=== PATIENT | male | born 1960 | race Caucasian/White ===

== ENCOUNTER 2016-11-17 01:53 | Inpatient (IN) ==
[2016-11-17] MEDS ORDERED: NS 1,000 ML IV ONE ×3 (02:38→04:27)
[2016-11-17] MEDS ORDERED: ZOFRAN IV ONE (02:39)
[2016-11-17 03:02] LABS: URINE CULTURE NEEDED? NO; URINE MICRO REVIEW NEEDED? NO; URINE SOURCE CLEAN CATCH
[2016-11-17 03:04] LABS: BILIRUBIN URINE NEGATIVE (NEGATIVE); BLOOD URINE NEGATIVE (NEGATIVE); COLOR STRAW; GLUCOSE URINE >1000 mg/dL (NEGATIVE); LEUKOCYTES URINE NEGATIVE (NEGATIVE); NITRITE URINE NEGATIVE (NEGATIVE); PROTEIN URINE NEGATIVE (NEGATIVE); SP GRAVITY URINE 1.022; TURBIDITY URINE CLEAR (CLEAR); UROBILINOGEN URINE NORMAL (NORMAL)
[2016-11-17 03:06] LABS: UR EPITHELIAL CELLS <10 /HPF (<10); URINE BACTERIA NEGATIVE /HPF; URINE RBC <10 /HPF (<10); URINE WBC <10 /HPF (<10)
[2016-11-17 03:19] LABS: ALLEN TEST YES; BE -18.7 mmoll (-3.0-3.0); BLOOD TYPE ARTERIAL; DRAW SITE R RADIAL; METHB 1.5 % (0.0-1.5); O2(CT) 19.4 mL/dL (15.0-23.0); PO2(98.6) 121 mmHg (60-100); SAMPLE BLOOD; SAO2 99.2 % (95.0-100.0); THB 14.2 g/dL (11.5-17.4); pH(98.6) 7.22 (7.35-7.45)
[2016-11-17 03:22] LABS: MODALITY ROOM AIR; PCO2(98.6) 16 mmHg (35-45)
[2016-11-17 03:59] LABS: ALBUMIN 4.2 g/dL (3.5-5.0); BASO% 0.1 % (0.0-0.8); CALCIUM 9.5 mg/dL (8.8-10.2); EOS# 0.01 X1000 (0.0-0.7); HEMOGLOBIN 13.8 g/dL (14.0-18.0); IMM GRAN% 0.7 % (0.0-0.5); LYMPH# 0.69 X1000 (1.2-3.4); LYMPH% 2.4 % (20.5-51.1); MANUAL DIFF NEEDED? NO; MCH 33.3 PG (27-31); MCHC 34.5 g/dL (33-37); MCV 96.6 FL (81-99); MONO# 2.09 X1000 (0.11-0.59); MONO% 7.3 % (1.7-9.3); MPV 9.3 FL (7.4-10.4); NEUT% 89.5 % (42.2-75.2); PLT 358 X1000 (130-400); POTASSIUM 5.9 mmol/L (3.5-5.1); RBC 4.14 XMIL (4.7-6.1); TOTAL BILIRUBIN 0.47 mg/dL (0.20-1.00); TOTAL PROTEIN 7.5 g/dL (6.3-8.3)
[2016-11-17] MEDS ORDERED: ZOSYN 3.375 GM/NS 3.375 GM/50 ML IVPB IV ONE (04:14)
[2016-11-17] MEDS ORDERED: HUMULIN R IV ONE (04:15)
--- NOTE | 2016-11-17 04:16 | PROVIDER DOCUMENTATION ---
HPI-General Adult - General Chief Complaint: Nausea/Vomiting Stated Complaint: DEHYDRATED, VOMITING Time Seen by Provider: 11/17/16 02:38 Source: patient (Patient is a 56 year old white male with esophageal cancer, currently receiving chemotherapy by Dr. Ward, who presents with worsening nausea,vomiting since 4am on Saturday.) Allergies/Adverse Reactions: Patient Allergies Allergy/AdvReac Type Severity Reaction Status Date / Time carbetapentane AdvReac SHORTNESS Verified 11/17/16 02:39 [From Carbaphen 12] OF BREATH chlorpheniramine AdvReac SHORTNESS Verified 11/17/16 02:39 [From Carbaphen 12] OF BREATH phenylephrine AdvReac SHORTNESS Verified 11/17/16 02:39 [From Carbaphen 12] OF BREATH Home Medications: Home Medication List Medication Instructions Recorded Confirmed Last Taken Type Hydrocodone/Acetaminophen [[place] 1 each PO PRN PRN 11/17/16 11/17/16 11/15/16 History 5-325 Tablet] Levofloxacin [Levofloxacin] 500 mg PO DAILY 11/17/16 11/17/16 11/15/16 History Levothyroxine [Synthroid] 50 microgm PO DAILY 11/17/16 11/17/16 11/15/16 History Pembrolizumab [Keytruda] 0 mg IV DIRECTED 11/17/16 11/17/16 Unknown History - History of Present Illness -Gen Adult Location of Pain/Injury: reports: abdomen Pain Radiation: reports: no radiation Quality of Pain: reports: aching Onset/Duration: reports: gradual Timing: reports: still present, getting worse Similar Symptoms Previously?: Yes Recently seen or treated by another doctor?: Yes Review of Systems - Adult - REVIEW OF SYSTEMS - ADULT Constitutional: reports: see HPI, chills, weight loss, other (weakness) Eyes: reports: no symptoms reported Ears, Nose, Mouth & Throat: reports: no symptoms reported Cardiovascular: denies: chest pain Respiratory: reports: no symptoms reported, see HPI Gastrointestinal: reports: abdominal pain, nausea, vomiting. denies: diarrhea Genitourinary: reports: no symptoms reported Musculoskeletal: reports: see HPI Integumentary: denies: rash Neurological: reports: see HPI Psychiatric: reports: no symptoms reported Endocrine: reports: see HPI, increased thirst, polyuria Hematologic/Lymphatic: reports: see HPI Allergic/Immunologic: reports: no symptoms reported All Other Systems: Reviewed and Negative Past History - Adult - PAST MEDICAL HISTORY-ADULT Review of Records: reports: Old Records Reviewed, Nursing Assessment Review, Medications Reviewed, Social history reviewed & non-contributory. Major Childhood Illnesses: reports: denies history Cardiovascular: reports: denies history Respiratory: reports: denies history Gastrointestinal: reports: other (esoph. cancer) Obstetrical/Gynecological: reports: denies history Genitourinary: reports: denies history Musculoskeletal: reports: denies history Neurological: reports: denies history Endocrine/Immune: reports: denies history Other Conditions: reports: denies history - PRIOR SURGERIES/PROCEDURES Surgical/Procedure History: reports: other (esoph ca surgery c j-tube placement) - FAMILY HISTORY Family History: reviewed, not pertinent Physical Exam-General - CONSTITUTIONAL General Appearance: other (appears ill, dry membranes, smells of ketones) - EYES Eyes: other (clear) - HEAD, EARS, NOSE, MOUTH & THROAT HENMT: normocephalic/atraumatic - NECK Neck: supple - RESPIRATORY Respiratory: lungs clear - CARDIOVASCULAR Cardiovascular: tachycardia - GASTROINTESTINAL (ABDOMEN) Abdominal Exam: distended, tenderness. negative: guarding, rebound - MUSCULOSKELETAL Back Exam: normal inspection, no CVA tenderness Extremity: non-tender - SKIN Integumentary: other (decreased turgor) - NEUROLOGIC Neurologic: other (nonfocal) - PSYCHIATRIC Psych/Mental Status: anxious Progress - PLAN OF CARE/RESULTS Progress/Plan/Lab Results: Vital Signs - 8 hr 11/17/16 02:05 Temperature 97.6 F Pulse Rate 137 H Respiratory Rate 14 Blood Pressure 117/72 O2 Sat by Pulse Oximetry 100 Laboratory Results - last 24 hr 11/17/16 11/17/16 11/17/16 00:25 02:11 03:10 WBC RBC Hgb Hct MCV MCH MCHC RDW Std Deviation Plt Count MPV Immature Gran % (Auto) Neut % (Auto) Lymph % (Auto) Boundary % (Auto) Eos % (Auto) Baso % (Auto) Immature Gran # (Auto) Neut # (Auto) Lymph # (Auto) Boundary # (Auto) Eos # (Auto) Baso # (Auto) Specimen Type Sample Site pH pCO2 pO2 HCO3 Base Excess Oxyhemoglobin ABG O2 Sat (Calculated) ABG O2 Saturation ABG Carboxyhemoglobin ABG Methemoglobin Bruno Test A-a O2 Difference Total Hemoglobin Lactate Blood Gas Modality FiO2 % Sodium 128 L Potassium 5.9 H Chloride 86 L Carbon Dioxide 8 L Anion Gap 34 BUN 29 H Creatinine 1.3 H Estimated GFR/1.73 m2 57 BUN/Creatinine Ratio 22 Glucose 690 H* POC Glucose > 500 H Calculated Osmolality 296 Calcium 9.5 Total Bilirubin 0.47 AST 9 L ALT 14 Alkaline Phosphatase 126 H Total Protein 7.5 Albumin 4.2 Globulin 3.3 Albumin/Globulin Ratio 1.3 Amylase 15 L Lipase 11 L Urine Source CLEAN CATCH Urine Color STRAW Urine Turbidity CLEAR Urine pH 5.0 Ur Specific [place] 1.022 Urine Protein NEGATIVE Ur Glucose (Stick) >1000 A Ur Ketones (Stick) 100 A Urine Blood NEGATIVE Urine Nitrite NEGATIVE Urine Bilirubin NEGATIVE Urobilinogen Dipstick NORMAL Urine Leukocytes NEGATIVE Urine WBC (Auto) <10 Urine RBC (Auto) <10 U Epithel Cells (Auto) <10 Urine Bacteria (Auto) NEGATIVE 11/17/16 11/17/16 03:10 03:12 WBC 28.51 H RBC 4.14 L Hgb 13.8 L Hct 40.0 L MCV 96.6 MCH 33.3 H MCHC 34.5 RDW Std Deviation 12.5 Plt Count 358 MPV 9.3 Immature Gran % (Auto) 0.7 H Neut % (Auto) 89.5 H Lymph % (Auto) 2.4 L Boundary % (Auto) 7.3 Eos % (Auto) 0.0 Baso % (Auto) 0.1 Immature Gran # (Auto) 0.20 H Neut # (Auto) 25.50 H Lymph # (Auto) 0.69 L Boundary # (Auto) 2.09 H Eos # (Auto) 0.01 Baso # (Auto) 0.02 Specimen Type ARTERIAL Sample Site R RADIAL pH 7.22 L pCO2 16 L* pO2 121 H HCO3 10.3 L Base Excess -18.7 L Oxyhemoglobin 96.3 ABG O2 Sat (Calculated) 19.4 ABG O2 Saturation 99.2 ABG Carboxyhemoglobin 1.40 ABG Methemoglobin 1.5 Bruno Test YES A-a O2 Difference 9.0 Total Hemoglobin 14.2 Lactate 3.40 H Blood Gas Modality ROOM AIR FiO2 % 21.0 Sodium Potassium Chloride Carbon Dioxide Anion Gap BUN Creatinine Estimated GFR/1.73 m2 BUN/Creatinine Ratio Glucose POC Glucose Calculated Osmolality Calcium Total Bilirubin AST ALT Alkaline Phosphatase Total Protein Albumin Globulin Albumin/Globulin Ratio Amylase Lipase Urine Source Urine Color Urine Turbidity Urine pH Ur Specific [place] Urine Protein Ur Glucose (Stick) Ur Ketones (Stick) Urine Blood Urine Nitrite Urine Bilirubin Urobilinogen Dipstick Urine Leukocytes Urine WBC (Auto) Urine RBC (Auto) U Epithel Cells (Auto) Urine Bacteria (Auto) Orders Category Date Time Status NPO Diet 11/17/16 02:10 Active acute [FLAT/UPRIGHT ABD/1 VIEW CHEST] [RAD] Stat Exams 11/17/16 03:21 Taken ABG [RESP] Routine Lab 11/17/16 03:12 Completed ABG [RESP] Stat Lab 11/17/16 04:13 Ordered AMYLASE [CHEM] Stat Lab 11/17/16 03:10 Completed BLOOD CULTURE [BLDCUL] Stat Lab 11/17/16 04:13 Ordered CBC WITH ELECTRONIC DIFF [HEME] Stat Lab 11/17/16 03:10 Completed COMPREHENSIVE METABOLIC PANEL [CHEM] Stat Lab 11/17/16 03:10 Completed LIPASE [CHEM] Stat Lab 11/17/16 03:10 Completed URINALYSIS W/POSS RFLX CULT-1 [URINALYSIS] Stat Lab 11/17/16 00:25 Completed 0.9% Sodium Chloride Inj [Ns] 1,000 ml Med 11/17/16 02:38 Discontinued IV 999 mls/hr Insulin Human Regular [Humulin R] Med 11/17/16 04:15 Once 15 unit IV NOW ONE Ns 1000 ml IV Bolus X1 Med 11/17/16 04:15 Ordered 0.9% Sodium Chloride Inj [Ns] 1,000 ml IV 999 mls/hr Ondansetron [Zofran] Med 11/17/16 02:39 Discontinued 4 mg IV NOW ONE Zosyn 3.375 gm/Ns IV Now Med 11/17/16 04:14 Ordered Piperacil/Tazobact 3.375 gm/Ns [Zosyn 3.375 gm/Ns] 50 ml IV NOW Result Diagrams: 11/17/16 03:10 11/17/16 03:10 - XRAY 1 XRAY Study: Chest (NAD), Abdomen, Pelvis (large stool in colon, no obstruction or free air) - CONSULTS/PCP/HOSPITALIST Notification #1 *Consult/PCP/Hospitalist*: Dr. 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 Esophageal cancer Qualifiers: Malignant neoplasm of esophagus location: unspecified location Qualified Code(s ): C15.9 - Malignant neoplasm of esophagus, unspecified Leukocytosis (leucocytosis) Qualifiers: Leukocytosis type: unspecified Qualified Code(s): D72.829 - Elevated white blood cell count, unspecified Sepsis Qualifiers: Sepsis type: sepsis due to unspecified organism Qualified Code(s): A41.9 - Sepsis, unspecified organism Disposition: ADMITTED INPATIENT 09 Certified Medical Emergency: Emergent Condition: Stable Referrals and Follow-Ups: Nelson Olivas [Primary Care Provider] - - Critical Care Note This patient required my direct & personal management of CC.: Yes Total Time (mins): 150 Critical Care Statement: This patient required my direct personal management to treat or rule out processes, the absence of which, could potentiallly result in sudden, clinically significant life or limb threatening deterioration.
[2016-11-17] MEDS ORDERED: NS 500 ML IV ONE (04:27)
[2016-11-17] MEDS ORDERED: EPINEPHRINE 8 MG in D5W 250 ML IV SCH (04:30)
[2016-11-17] MEDS ORDERED: LEVOPHED 8 MG in D5 1/2 NS 250 ML IV SCH (04:30)
[2016-11-17] MEDS ORDERED: HUMULIN R 100 UNIT in NS 100 ML IV SCH (04:30)
[2016-11-17] MEDS ORDERED: ZOFRAN IV PRN (06:50)
[2016-11-17] MEDS ORDERED: TYLENOL PR PRN (07:25)
[2016-11-17] MEDS ORDERED: D50W SYRINGE IV PRN (07:25)
[2016-11-17] MEDS ORDERED: ZOFRAN PO PRN (07:25)
[2016-11-17] MEDS ORDERED: SODIUM BICARBONATE 8.4% 50 MEQ in D5W 250 ML IV PRN (07:25)
[2016-11-17] MEDS ORDERED: HUMULIN R 100 UNIT in NS 99 ML IV SCH (07:25)
[2016-11-17] MEDS ORDERED: SODIUM PHOSPHATE 30 MMOL in D5W 250 ML IV PRN (07:25)
[2016-11-17] MEDS ORDERED: MAGNESIUM SULFATE 2 GM/S.W.I. 2 GM/50 ML IVPB IV PRN (07:25)
[2016-11-17] MEDS: SYNTHROID PO SCH (07:36)
[2016-11-17] MEDS: NS 1,000 ML IV SCH ×7 (07:37→23:44)
[2016-11-17] MEDS: ROCEPHIN 1 GM/NS 1 GM/50 ML IVPB IV SCH (07:37)
[2016-11-17] MEDS: D5 NS 1,000 ML IV SCH ×2 (07:37→15:20)
--- NOTE | 2016-11-17 08:21 | Diag Imaging Result Doc PS360 ---
THORAX/ABDOMEN/PELVIS W/O CONT - 11/17/2016 INDICATION: esophageal cancer TECHNIQUE: A CT dose reduction protocol was used. COMPARISON: Chest CT 04/12/2016, PET scan 12/07/2015 FINDINGS: CHEST: There is progression of enlargement of the right lobe of the thyroid. This now measures about 6.6 x 3.3 cm in AP and lateral dimensions. There is some mass effect causing slight tracheal narrowing and deviation to the left. On the prior contrast-enhanced exam, this was heterogeneous in enhancement suggesting involvement by metastatic disease. Otherwise, stable esophagectomy with gastric pull-up. No new adenopathy. Heart size remains normal. Minimal hazy infiltrates in the right middle lobe are nonspecific, suggesting some pneumonia. There is a right chest port in good position. Abdomen and pelvis: Stable gallstones in the gallbladder. No radiodense renal stones. No hydronephrosis or hydroureter. No bowel obstruction or inflammation. Urinary bladder, prostate, and rectum are normal. There are moderate degenerative changes of the spine. No acute or suspicious bony lesion. IMPRESSION: 1. Progressive enlargement of the right lobe of the thyroid which is heterogeneous. This suggests involvement by metastatic disease. 2. Minimal infiltrates in the right middle lobe suggesting some aspiration or pneumonia. 3. Gallstones in the gallbladder. No acute abnormality in the abdomen or pelvis. Electronically signed by Rod Cage 11/17/2016 8:19 AM
--- NOTE | 2016-11-17 08:23 | Diag Imaging Result Doc PS360 ---
FLAT/UPRIGHT ABD/1 VIEW CHEST - 11/17/2016 INDICATION: nausea, vomiting TECHNIQUE: Three views COMPARISON: 06/28/2014 FINDINGS: There is a right chest port in good position. The lungs are grossly clear and the heart size is normal. There is a nonobstructive bowel gas pattern. No free air or abnormal calcifications. IMPRESSION: Negative exam. Electronically signed by Rod Cage 11/17/2016 8:21 AM
[2016-11-17] MEDS ORDERED: BLISTEX MEDICATED BERRY LIP BALM TOP PRN (08:54)
--- NOTE | 2016-11-17 09:10 | HISTORY AND PHYSICAL ---
PRIMARY CARE PHYSICIAN: Dr. Bruno Olivas. CHIEF COMPLAINT: Nausea, vomiting. HISTORY OF PRESENTING ILLNESS: A 56-year-old male with a history of esophageal cancer, who is currently on Keytruda, had presented to the emergency department with a 1-day history of having intractable nausea, vomiting. The patient states that he could not keep anything and his vomiting was not subsiding and, subsequently, he had come to the emergency department. In the ER, he was evaluated. He had routine laboratories done which was consistent with patient being in diabetic ketoacidosis. Due to his presenting symptoms, the patient will need hospitalization for further management. At the time of my examination, he denied any headache, vision changes, fevers, chills, chest pain, hemoptysis, but did have some weight changes. PAST MEDICAL HISTORY: Esophageal cancer. PAST SURGICAL HISTORY: Tonsillectomy, appendectomy, esophageal surgery. ALLERGIES: No known drug allergies. CURRENT MEDICATIONS: As listed in the MAR. SOCIAL HISTORY: He denies any history of smoking, alcohol, or illicit drug use. FAMILY HISTORY: No history of coronary disease. REVIEW OF SYSTEMS: Twelve-point review of systems listed as in HPI. Other systems negative. PHYSICAL EXAMINATION: GENERAL: Ill-looking appearing male. He is without any respiratory distress. VITAL SIGNS: Temperature 97.6 degrees, pulse 137, respiration 14, blood pressure 117/72. HEENT: Atraumatic, normocephalic. Extraocular movements intact. PERRLA. NECK: Supple. CHEST: Clear to auscultation. CARDIOVASCULAR: Regular rate and rhythm. ABDOMEN: Soft. Positive bowel sounds. EXTREMITIES: No edema. NEURO: He is awake, alert, oriented x3. GENITOURINARY: No bladder distention. SKIN: There is some tenting. LABORATORIES AND STUDIES: WBC 28.51, hemoglobin 13.8, hematocrit 40.0, platelets 358,000. Sodium 128, potassium 5.9, chloride 86, CO2 is 8. BUN is 29, creatinine is 1.3, glucose is 690. Blood gases shows a pH of 7.22 and pCO2 of 16. Urine with greater than 1000 of glucose and positive for ketones. ASSESSMENT: A 56-year-old male with a history of esophageal cancer who is currently on Keytruda had presented to the emergency department with 1-day history of worsening nausea, vomiting. He was evaluated in the ER and found to be in ketoacidosis, and due to his presenting symptoms, he will need hospitalization for further management. 1. Diabetic ketoacidosis. 2. Adverse effects of Keytruda with known side effects from diabetic ketoacidosis. 3. Esophageal cancer; on chemotherapy. PLAN: 1. We will admit the patient to ICU. 2. We will start the patient on insulin drip per diabetic ketoacidosis protocol. 3. Continue with IV fluids. 4. We will give patient adequate antiemetics. 5. We will consult his oncologist for possible medication adjustment. 6. We will put the patient on DVT prophylaxis with SCDs. 7. We will continue to follow and reassess. cc: Delfino Cody MD
[2016-11-17 09:35] LABS: ALLEN TEST YES; BE -10.3 mmoll (-3.0-3.0); BLOOD TYPE ARTERIAL; DRAW SITE R RADIAL; METHB 1.2 % (0.0-1.5); MODALITY ROOM AIR; O2(CT) 16.5 mL/dL (15.0-23.0); PCO2(98.6) 27 mmHg (35-45); PO2(98.6) 93 mmHg (60-100); SAMPLE BLOOD; SAO2 98.9 % (95.0-100.0); THB 12.1 g/dL (11.5-17.4); pH(98.6) 7.33 (7.35-7.45)
--- NOTE | 2016-11-17 09:56 | PROGRESS NOTE ---
DATE: 11/17/2016 SUBJECTIVE: He was admitted yesterday. He came in with nausea. The nausea sounded like it lasted really a good 6 hours. Has a history of esophageal cancer. He is status post esophageal resection with reanastomosis, and he has had radiation and chemotherapy. He was doing fairly well and then nausea presented. He had eaten some food; did not describe any rice, milk, protein or meat necessarily, but I guess there is potential that this could have been food poisoning. He had a CT of his chest/abdomen/pelvis with (1) progressive enlargement of right lobe of the thyroid which is heterogeneous suggesting involvement by metastatic disease and (2) minimal infiltrate in the right middle lobe suggestive some aspiration pneumonia and (3) gallstones in the gallbladder with no acute abnormality. Abdominal x-ray from yesterday was a negative exam. LAB: On presentation, white blood cell count was elevated at 28,510, hematocrit 40, platelet count 358,000. Chemistry: Sodium 128, potassium 5.9, chloride 86, BUN 29, creatinine 1.3. His blood sugar was 690, greater than 500 on fingerstick. His serum level was 690. Amylase 15 and lipase 11. Blood gases on presentation: The pH was 7.22, pCO2 16, PO2 120, O2 saturation was 99%. Bicarb was 8 and anion gap was 34. ASSESSMENT/PLAN: 1. Diabetic ketoacidosis, better with some nausea. Receiving intravenous fluids and insulin to try and get his sugars down and convert him to subcutaneous insulin. 2. Hyponatremia, aware. 3. Acute kidney injury which is mild. Creatinine is 1.3. Continue volume and fluid. 4. Esophageal cancer. He had undergone esophageal resection and on chemotherapy, but appears to have developed insulin-dependent diabetes. cc: Bruno May MD
[2016-11-17 10:15] LABS: AGAP 20; BUN 29 mg/dL (8-22); CALCIUM 8.5 mg/dL (8.8-10.2); CHLORIDE 102 mmol/L (98-107); COSMO 289; MAGNESIUM 1.8 mg/dL (1.5-2.7); POTASSIUM 3.9 mmol/L (3.5-5.1); SODIUM 136 mmol/L (136-145); TCO2 14 mmol/L (25-35)
[2016-11-17] MEDS: TYLENOL PO PRN ×2 (11:33→16:33)
[2016-11-17 12:43] LABS: AGAP 13; BUN 27 mg/dL (8-22); CALCIUM 8.7 mg/dL (8.8-10.2); CHLORIDE 104 mmol/L (98-107); COSMO 278; MAGNESIUM 1.8 mg/dL (1.5-2.7); SODIUM 134 mmol/L (136-145); TCO2 17 mmol/L (25-35)
--- NOTE | 2016-11-17 13:59 | CONSULTATION ---
DATE OF CONSULTATION: 11/17/2016 ADMITTING PHYSICIAN: Dr. Delfino Cody. REQUESTING PHYSICIAN: Dr. Cody. We appreciate this consult. CHIEF COMPLAINT: Esophageal cancer. HISTORY OF PRESENT ILLNESS: Mr. Isaiah Hinton is a 56-year-old male, well known to Dr. Ward with a history of esophageal cancer currently on Keytruda with last treatment being 11/07/2016. The patient reports that Saturday morning he began to experience nausea with dry heaves followed by significant vomiting. He became profoundly weak and asked his daughter to bring him to the emergency room. Upon presentation to [facility] Emergency Department, the patient was found to be in DKA with blood sugar in the 600s. The patient does have a history of diabetes mellitus with no significant episodes of DKA. Of note, the patient is currently on Keytruda. Patient is currently in intensive care unit with IV regular insulin sliding scale and IV fluid hydration. He has had much improvement since admission with no further vomiting. His blood sugar is currently in the 200s. He reports that he feels much improved. PAST MEDICAL HISTORY: Esophageal cancer. PAST SURGICAL HISTORY: 1. Tonsillectomy. 2. Appendectomy. 3. Partial esophagectomy. FAMILY HISTORY: Negative for any hematologic or oncologic problems. SOCIAL HISTORY: The patient has no history of tobacco, alcohol or illicit drug use. MEDICATIONS ON ADMISSION: 1. Fioricet. 2. Levaquin. 3. Lidocaine/prilocaine topical. 4. Nexium 40 mg daily. 5. Keytruda. ALLERGIES: The patient has no known drug allergies. REVIEW OF SYSTEMS: A 14-point review of systems was obtained and is negative except as mentioned in HPI. PHYSICAL EXAM: Mr. Hinton is a 56-year-old male lying supine in bed in no immediate distress.Vital Signs: Temperature 97.0 degrees, blood pressure 114/64, heart rate 115, respirations are 20, O2 saturation is 100% on room air. HEENT: Normocephalic, atraumatic. Mucous membranes are pink and moist. Sclerae is anicteric. Extraocular movements intact. Neck: Supple. Lungs: Clear to auscultation bilaterally. Chest expansion is equal bilaterally. CV: S1, S2 is heard without murmur, rub or gallop. The patient is tachycardic. Abdomen: Soft, nondistended, nontender. Bowel sounds are positive in all quadrants without rebound or guarding noted. Extremities: Without clubbing, cyanosis, or edema. Dermatologic: No rashes, bruises or lesions. Neurologic: The patient is awake, alert, and oriented x3. He has no focal motor deficits. LABORATORY DATA: Hemoglobin 13.8, hematocrit 40.0, white blood cell count 28.51, platelets 358,000. ANC is 25.50. Sodium 136, potassium 3.9, chloride 102, CO2 is 14, BUN 29, creatinine 1.1, glucose 306, calcium 8.5, magnesium 1.8. Urinalysis is negative for UTI. Blood cultures are currently pending. IMAGIN. Studies CT of the chest, abdomen and pelvis reveals progressive enlargement of the right lobe of the thyroid\ questionably related to metastatic disease with right middle lobe minimal infiltrates. Gallstones seen in gallbladder. 2. Abdominal x-ray is negative for any acute process. ASSESSMENT AND PLAN: 1. Metastatic esophageal cancer with recent progression currently on Keytruda with his last dose being November 07. We will hold until his acute illness passes. 2. Diabetic ketoacidosis with a current glucose of 306 currently on insulin sliding scale as well as IV fluid hydration. The patient has had significant improvement. We will continue to monitor laboratory data. 3. Hypothyroidism currently on thyroxine. We will check a TSH and T4 and adjust thyroid replacement accordingly. 4. Nausea and vomiting resolved on intravenous antiemetics and intravenous fluids. 5. We will follow along with you and make further recommendations pending outcomes. The above reflects the history, exam, assessment and plan of Dr. Watkins. Dictated by DEWAYNE Guthrie for Cathy Watkins MD cc: DEWAYNE Guthrie MD
[2016-11-17 17:13] LABS: AGAP 14; BUN 26 mg/dL (8-22); CALCIUM 8.7 mg/dL (8.8-10.2); CHLORIDE 105 mmol/L (98-107); COSMO 279; MAGNESIUM 1.7 mg/dL (1.5-2.7); POTASSIUM 4.2 mmol/L (3.5-5.1); SODIUM 136 mmol/L (136-145); TCO2 17 mmol/L (25-35)
[2016-11-17 21:22] LABS: AGAP 13; BUN 25 mg/dL (8-22); CALCIUM 8.5 mg/dL (8.8-10.2); CHLORIDE 106 mmol/L (98-107); COSMO 281; MAGNESIUM 2.3 mg/dL (1.5-2.7); SODIUM 137 mmol/L (136-145); TCO2 18 mmol/L (25-35)
[2016-11-17] MEDS: HUMULIN R SUBQ SCH (23:42)
[2016-11-18] MEDS: TYLENOL PO PRN ×4 (00:35→18:39)
[2016-11-18] MEDS: HUMULIN R SUBQ SCH ×6 (04:03→23:38)
[2016-11-18] MEDS: SYNTHROID PO SCH (06:03)
[2016-11-18] MEDS: ROCEPHIN 1 GM/NS 1 GM/50 ML IVPB IV SCH (06:04)
[2016-11-18 06:24] LABS: BASO% 0.1 % (0.0-0.8); EOS# 0.07 X1000 (0.0-0.7); EOS% 0.4 % (0.0-10.0); HEMATOCRIT 31.5 % (42.0-52.0); HEMOGLOBIN 10.8 g/dL (14.0-18.0); IMM GRAN# 0.03 X1000 (0.0-0.04); IMM GRAN% 0.2 % (0.0-0.5); LYMPH# 1.26 X1000 (1.2-3.4); LYMPH% 7.2 % (20.5-51.1); MANUAL DIFF NEEDED? YES; MCH 33.4 PG (27-31); MCHC 34.3 g/dL (33-37); MCV 97.5 FL (81-99); MONO# 1.21 X1000 (0.11-0.59); MONO% 6.9 % (1.7-9.3); MPV 8.6 FL (7.4-10.4); NEUT% 85.2 % (42.2-75.2); PLT 239 X1000 (130-400); RBC 3.23 XMIL (4.7-6.1)
[2016-11-18 06:35] LABS: AGAP 15; BUN 19 mg/dL (8-22); CALCIUM 8.7 mg/dL (8.8-10.2); CHLORIDE 107 mmol/L (98-107); COSMO 284; POTASSIUM 3.8 mmol/L (3.5-5.1); SODIUM 140 mmol/L (136-145); TCO2 18 mmol/L (25-35)
[2016-11-18] MEDS: NS 1,000 ML IV SCH ×3 (07:00→23:38)
[2016-11-18 07:42] LABS: LYMPHS 10 % (21-51); MONO 8 % (1-9)
[2016-11-18 07:43] LABS: HYPOCHROM 1+
--- NOTE | 2016-11-18 10:15 | PROGRESS NOTE ---
DATE: 11/18/2016 SUBJECTIVE: Ms. Hinton is feeling much, much better. He would like to try a soft diet. No nausea at this time. No abdominal pain. PHYSICAL EXAMINATION: Vital Signs: Temperature 98.2 degrees, pulse 82, respirations 19, blood pressure 120/74. HEENT: Pupils are equal and round. Lungs: Are clear in all lung downs. Cardiovascular Examination: Regular rhythm and rate without murmur or S3. Abdomen: Soft. Skin: Warm and dry. Is and Os: Good urine output, 1800 mL. LABS: From this morning, white count has come down to 17,530, hematocrit 31, platelet count 239,000. Sodium 140, potassium 3.8, chloride 107, bicarb 18, BUN 19, creatinine 0.7, blood sugar is 169, 192, 144. ASSESSMENT AND PLAN: 1. Metastatic esophageal cancer with recent progression. Currently on Keytruda, the last dose being November 07. We are going to hold until his acute illness passes. 2. Diabetic ketoacidosis. Current blood sugar coming down. He would like to try some soft diet. See if we can meter changes records clerk to subcutaneous. I think he is on subcutaneous insulin now. 3. Hypothyroidism. Currently on thyroxine. Appears be euthyroid. 4. Nausea and vomiting secondary to diabetic ketoacidosis. This is improving. We will see if we can move him to the floor. 5. Review of his lab this morning, sodium 140, potassium 3.8, chloride 107, BUN 15, creatinine 0.7, blood sugars 169, 192, 144. Magnesium was 2.3 yesterday. We will see if we can move him to the floor. Advance him to a soft diet. He is on ceftriaxone 1 g intravenous every 24 hours. Note, a CT of his chest, abdomen, and pelvis, progressive enlargement of right lobe of the thyroid which is heterogeneous, suggests involvement of metastatic disease. Minimal infiltrates in the right middle lobe, suggesting some aspiration pneumonia. We will continue the Rocephin. Gallstones in the gallbladder noted. cc: Bruno May MD
[2016-11-18] MEDS ORDERED: DIFLUCAN LIQUID PO ONE (22:32)
[2016-11-19] MEDS: HUMULIN R SUBQ SCH ×5 (05:00→21:02)
[2016-11-19] MEDS: ROCEPHIN 1 GM/NS 1 GM/50 ML IVPB IV SCH (06:09)
[2016-11-19] MEDS: SYNTHROID PO SCH (06:09)
[2016-11-19] MEDS: TYLENOL PO PRN ×3 (06:13→22:32)
[2016-11-19 07:24] LABS: MANUAL DIFF NEEDED? NO
[2016-11-19 07:26] LABS: BASO% 0.2 % (0.0-0.8); EOS# 0.06 X1000 (0.0-0.7); EOS% 0.6 % (0.0-10.0); HEMOGLOBIN 11.1 g/dL (14.0-18.0); IMM GRAN# 0.04 X1000 (0.0-0.04); IMM GRAN% 0.4 % (0.0-0.5); LYMPH# 0.77 X1000 (1.2-3.4); LYMPH% 7.1 % (20.5-51.1); MCH 33.7 PG (27-31); MCHC 34.7 g/dL (33-37); MCV 97.3 FL (81-99); MONO# 0.82 X1000 (0.11-0.59); MONO% 7.6 % (1.7-9.3); MPV 8.4 FL (7.4-10.4); NEUT% 84.1 % (42.2-75.2); PLT 198 X1000 (130-400); RBC 3.29 XMIL (4.7-6.1)
[2016-11-19 07:53] LABS: AGAP 15; ALBUMIN 3.1 g/dL (3.5-5.0); ALKALINE PHOSPHATASE 77 U/L (32-122); BUN 7 mg/dL (8-22); CALCIUM 7.8 mg/dL (8.8-10.2); CHLORIDE 101 mmol/L (98-107); COSMO 279; GOT 11 U/L (10-34); GPT 10 U/L (10-44); POTASSIUM 3.9 mmol/L (3.5-5.1); SODIUM 137 mmol/L (136-145); TCO2 21 mmol/L (25-35); TOTAL BILIRUBIN 0.36 mg/dL (0.20-1.00); TOTAL PROTEIN 5.7 g/dL (6.3-8.3)
[2016-11-19] MEDS: DIFLUCAN LIQUID PO SCH (08:02)
[2016-11-19] MEDS: NS 1,000 ML IV SCH ×2 (09:21→17:55)
[2016-11-19] MEDS: REGLAN PO SCH ×3 (10:28→21:01)
--- NOTE | 2016-11-19 11:21 | PROGRESS NOTE ---
DATE: 11/19/2016 SUBJECTIVE: The patient says he has got this low-grade nausea. He does not feel as good as yesterday. He does want to try to eat some today. OBJECTIVE: Temperature 97.4, pulse 78, respirations 20, blood pressure 140/74. Lungs are clear anterior lateral. Cardiovascular: Regular rate and rhythm without murmurs, or S3. Abdomen: Soft. Skin: Warm and dry. Urine output over 4 L. LABORATORY DATA: Blood sugar 204, 282, 282. Laboratory white count 10,820; hematocrit 32, platelet count 198,000. Sodium 137, potassium 3.9, chloride 101, bicarbonate 21, BUN 7, creatinine 0.5, blood sugar 166, 229 . ASSESSMENT AND PLAN: 1. Static esophageal cancer with recent progression, currently on Keytruda, last dose November 07. 2. Diabetic ketoacidosis. Blood sugar is doing better. 3. Hypothyroidism. Continue his present thyroxine euthyroid. 4. Some nausea and vomiting. We will try a little bit of Reglan to see if this will help. Blood sugar is doing better. He is eating better. Computed tomographic scan of his abdomen and pelvis reviewed again progressive enlargement of the right lobe of the thyroid heterogenous would suggest this may be metastatic disease, minimal infiltrates on the right middle lobe suggesting aspiration pneumonia and gallstones in the gallbladder, so we will repeat a chest x- ray, put him on a little bit of Reglan and see if we can get him to a regular floor, increase activity. cc: Bruno May MD
[2016-11-20] MEDS: HUMULIN R SUBQ SCH ×6 (00:58→20:27)
[2016-11-20] MEDS: NS 1,000 ML IV SCH ×4 (02:00→18:58)
[2016-11-20] MEDS: TYLENOL PO PRN ×3 (04:24→18:28)
[2016-11-20] MEDS: ROCEPHIN 1 GM/NS 1 GM/50 ML IVPB IV SCH (05:53)
[2016-11-20] MEDS: SYNTHROID PO SCH ×2 (05:53→06:00)
[2016-11-20] MEDS: REGLAN PO SCH ×5 (05:53→20:27)
--- NOTE | 2016-11-20 07:24 | Diag Imaging Result Doc PS360 ---
EXAM: CHEST-PORTABLE HISTORY: pneumonia TECHNIQUE: Portable erect AP chest at 0555 COMMENT: There is cardiomegaly. The lungs appear to be clear and stable since 11/17/2016. IMPRESSION: Cardiomegaly. Stable chest. Electronically signed by Neto Bah 11/20/2016 7:21 AM
[2016-11-20 09:43] LABS: HEMOGLOBIN A1C 5.9 % (4.8-6.0)
[2016-11-20] MEDS: DIFLUCAN LIQUID PO SCH (10:28)
--- NOTE | 2016-11-20 15:01 | PROGRESS NOTE ---
DATE: 11/20/2016 SUBJECTIVE: Today Mr. Hinton refers to be doing fine. Feels a whole lot stronger and even wanted to know when he will be going home. OBJECTIVE: Vital signs: Blood pressure is 158/85, pulse of 77, respirations 16 , temperature 98.3 degrees. General: Mr. Hinton is a 56-year-old male. He was in bed. He did not seem to be in any distress. HEENT: Mucosa is pink and moist. Anicteric. Acyanotic. Neck: Supple. Chest: Clear. Cardiovascular: Regular rate and rhythm. Abdomen: Soft. Extremities: No pedal edema. There is a port on right anterior chest wall. RECYCLER FORKLIFT DRIVER TRUCK DRIVER: Patient is alert and oriented x4. There is no focal neurological deficit. LABORATORY DATA: WBC is 10.82, hemoglobin is 11.1, platelet count of 198,000. Chemistry is reviewed. Glucose is 229. Vitamin D is less than 5.0. Bicarb is 21. ASSESSMENT: 1. Diabetic ketoacidosis, resolved. 2. Keytruda induced hyperglycemia with diabetic ketoacidosis. The medication has been discontinued. 3. Hypothyroidism. The patient is on levothyroxine. 4. Vitamin D deficiency. We will replace that. PLAN: So in general Mr. Hinton got admitted because of nausea and vomiting and was found to be in DKA. Upon review of his medication and hx; the patient has never had diabetes before and his A1c is 5.9 consistent with the fact that he is not diabetic, I think this DKA with hyperglycemia on presentation was due to medication side effects. The only new medication that the patient was on was Keytruda (pembrolizumab), so I think this is the medication that induced the metabolic derangement. If the patient is going to continue on this medication then he would need to be on some form of insulin to prevent further hyperglycemia complications. If patient is going to use a different type of medication to treat his underlying esophageal cancer, then I do not think he will need to be on any insulin. Will be waiting on the hematology/oncology physician to evaluate the patient and make some recommendations but I think we might be able to discharge Mr. Hinton tomorrow once the decision is made. cc: Armando Archuleta MD [facility]
[2016-11-20] MEDS ORDERED: LANTUS SUBQ SCH (21:00)
[2016-11-21] MEDS: TYLENOL PO PRN ×2 (00:32→06:25)
[2016-11-21] MEDS: HUMULIN R SUBQ SCH ×4 (00:33→11:41)
[2016-11-21] MEDS: NS 1,000 ML IV SCH ×3 (02:57→11:41)
[2016-11-21] MEDS: ROCEPHIN 1 GM/NS 1 GM/50 ML IVPB IV SCH (06:25)
[2016-11-21 06:26] LABS: MANUAL DIFF NEEDED? NO
[2016-11-21] MEDS: SYNTHROID PO SCH (06:26)
[2016-11-21] MEDS: REGLAN PO SCH ×2 (06:26→11:41)
[2016-11-21 06:38] LABS: BASO% 0.3 % (0.0-0.8); EOS# 0.22 X1000 (0.0-0.7); EOS% 3.2 % (0.0-10.0); HEMATOCRIT 33.4 % (42.0-52.0); HEMOGLOBIN 11.7 g/dL (14.0-18.0); IMM GRAN# 0.02 X1000 (0.0-0.04); IMM GRAN% 0.3 % (0.0-0.5); LYMPH# 1.03 X1000 (1.2-3.4); MCH 33.4 PG (27-31); MCV 95.4 FL (81-99); MONO# 0.72 X1000 (0.11-0.59); MONO% 10.5 % (1.7-9.3); NEUT% 70.7 % (42.2-75.2); PLT 216 X1000 (130-400)
[2016-11-21 07:18] LABS: AGAP 15; BUN 5 mg/dL (8-22); CALCIUM 8.1 mg/dL (8.8-10.2); CHLORIDE 98 mmol/L (98-107); COSMO 270; POTASSIUM 3.3 mmol/L (3.5-5.1); SODIUM 137 mmol/L (136-145); TCO2 24 mmol/L (25-35)
[2016-11-21] MEDS: DIFLUCAN LIQUID PO SCH (08:58)
[2016-11-21 11:09] VITALS: BP 151/78
[2016-11-21] MEDS ORDERED: HEPARIN INJ ONE (14:58)
[2016-11-21] MEDS ORDERED: HUMULIN R SUBQ SCH (16:00)
[2016-11-21] MEDS ORDERED: GLUCOPHAGE PO SCH (17:00)
--- NOTE | 2016-11-21 17:28 | DISCHARGE SUMMARY ---
ADMISSION DATE: 11/17/2016 DISCHARGE DATE: 11/21/2016 DATE OF ADMISSION: 11/17/2016. DATE OF DISCHARGE: 11/21/2016. CONSULTATIONS: Dr. Cathy Watkins with Hematology/Oncology. PERTINENT PROCEDURES: Chest, abdomen, pelvis CT: Showed: 1. Progressive enlargement of right lower lobe of the thyroid, which is heterogeneous suggesting involvement of metastatic disease. 2. Minimal infiltrates in the right middle lobe suggestive of aspiration pneumonia. 3. Gallstones in the gallbladder. 4. No acute abnormality in the abdomen or pelvis. DISCHARGE DIAGNOSES: 1. Diabetic ketoacidosis, resolved. 2. Keytruda-induced hyperglycemia with diabetic ketoacidosis. This medication has been discontinued. 3. Hypothyroidism. Continue with Synthroid. 4. Vitamin D deficiency. Continue supplementation. HOSPITAL COURSE: Briefly, Mr. Hinton was admitted because of nausea and vomiting. Was found to be in diabetic ketoacidosis. Upon review of his medication and history, the patient has never had diabetes. Before his A1c was 5.9, consistent with the fact that he is not diabetic. They felt that the diabetic ketoacidosis with hyperglycemia on presentation was due to a medication side effect. The only new medication was Keytruda, so they believe this medication induced metabolic derangement and if the patient was going to continue on this medication, he would need some sort of insulin to prevent further hyperglycemia complications, or if Hematology- Oncology wanted to change him to a different type of medicine to treat his underlying esophageal cancer. They have decided to discontinue this medication at this time. They will follow up with Dr. Hinton early on an outpatient basis. The patient is being discharged home today. VITAL SIGNS: Temperature is 97.4 degrees, heart rate 68, respirations 16, blood pressure is 158/78, O2 is 100% on room air. DISCHARGE DIET: GI soft. DISCHARGE MEDICATIONS: 1. Augmentin 875 mg p.o. every 12 hours. 2. [place] 5325, 1 each p.o. p.r.n. 3. Lantus 10 units subcutaneous at bedtime. The patient has been instructed to use only if needed during cancer therapy treatment if they decide to continue his Keytruda. 4. Synthroid 50 mcg p.o. daily. 5. Metformin 500 mg p.o. b.i.d. 6. Keytruda has currently been discontinued. However, he will follow up with his oncologist to see which medication route they will choose. FOLLOWUP: The patient is being discharged home. He will follow up with Dr. Ward as well as his primary care physician, Dr. Nelson Olivas. DISCHARGE INSTRUCTIONS: Again, he will need to regularly check his blood glucose during his cancer therapy. He has being given a prescription for insulin if needed. The patient can return to the emergency room for any worsening of symptoms. TIME SPENT: 30 minutes. This is DEWAYNE Champion, doing a discharge summary for Dr. Archuleta. Dictated by DEWAYNE Champion for Armando Archuleta MD cc: MD Nelson Rice MD
--- NOTE | 2016-11-21 18:34 | DISCHARGE SUMMARY ---
ADMISSION DATE: 11/17/2016 DISCHARGE DATE: 11/21/2016 FOLLOWUP: 1. Dr. Ward. 2. Dr. Nelson pratt. CONSULTATION DURING THIS ADMISSION: Hematology/oncology was consulted. Patient was seen by Dr. Ward. INVASIVE PROCEDURES DURING THIS ADMISSION: None. IMAGING STUDIES OF SIGNIFICANCE: A CT scan of the chest, abdomen, and pelvis was done which showed: 1. Progressive enlargement of the right lobe of the thyroid which heterogeneous, suggestive of metastatic involvement. 2. Gallstones in the bladder. 3. Minimal infiltrate in the right middle lobe suggestive some aspiration or pneumonia. ADMISSION DIAGNOSES: 1. Diabetic ketoacidosis. 2. Adverse effects of Keytruda. 3. Esophageal cancer, on chemotherapy. DIAGNOSES AT THE TIME OF DISCHARGE: 1. Diabetic ketoacidosis, resolved. 2. Keytruda-induced hyperglycemia with diabetic ketoacidosis. 3. Hypothyroidism. 4. Vitamin D deficiency. 5. Right thyroid lobe enlargement which is worsening, suspicious for metastatic involvement. 6. Gallstones; to follow up with general surgeon. 7. Right middle lobe pneumonia. DISCHARGE MEDICATIONS: 1. [place]. 2. Keytruda as needed. 3. Levothyroxine 50 mcg daily. 4. Amoxicillin 870 b.i.d. for 5 more days. 5. Insulin glargine 10 units to be used only during cancer treatment and if necessary to up titrate and also to follow up with primary care. 6. Metformin 500 b.i.d. PRESENTING COMPLAINT: Nausea and vomiting. HISTORY OF PRESENTING COMPLAINT: Mr. Hinton is a 56-year-old male who has been diagnosed with esophageal cancer status post esophageal surgery. Patient has been on Keytruda; has had 2 therapies with this treatment. Subsequently, according to him, and he started having some nausea and vomiting and presented to the emergency department. He was found to be severe hyperglycemic and in nikita DKA. Patient was admitted for further medical care. HOSPITAL COURSE: The patient was admitted initially to the ICU. DKA protocol was initiated. The patient had an elevated white can. A CTA did show some possible right middle lobe infection, so was started on antibiotics. Patient's DKA resolved pretty quickly. He was transferred to the floor and he continued to do well. A1c which was checked was 5.9, consistent with the fact that this patient is not diabetic. We think the severe acute hyperglycemic complication was due to the Keytruda. I spoke briefly with Dr. Ward on this and he plans to continue with the Keytruda which means the patient will need insulin coverage whenever he gets the Keytruda. For now, glucose has been a little bit out of control so we will put him on metformin for now and patient has been advised to follow up with his primary care doctor. Today he refers to feeling a whole lot better. He has been a little bit emotional. He cried multiple times when I was in there with him but he was extremely thankful for the services that he received here in the hospital. Patient is going to be discharged today in a stable condition. Blood pressure is 151/78, pulse is 68, respiration is 16, temperature 97.4 degrees. Patient is saturating 100% on room air. Physical exam is completely unremarkable. The patient has been advised to follow up with Dr. Ward and Dr. Nelson Pratt. He is also advised to follow up with a general surgeon about the gallstones. TIME SPENT FOR DISCHARGE: 37 minutes. cc: Armando Archuleta MD
[2016-11-21] MEDS ORDERED: AUGMENTIN PO SCH (21:00)
== END 2016-11-21 16:08 | disposition home or self-care (01) ==
LOC: ED 01:53 → SUATTDRO 06:38 → ICU 06:38 → 4N 11-19 10:59
PROVIDERS: ATTEND Internal Medicine

== ENCOUNTER 2016-11-22 01:50 | Inpatient (IN) ==
[2016-11-22] MEDS ORDERED: ZOFRAN IV ONE ×2 (02:12→03:11)
[2016-11-22] MEDS ORDERED: NS 1,000 ML IV ONE (02:13)
[2016-11-22] MEDS ORDERED: HUMULIN R IV ONE ×2 (02:20→05:42)
[2016-11-22 02:39] LABS: ALLEN TEST YES; BE -13.5 mmoll (-3.0-3.0); BLOOD TYPE ARTERIAL; DRAW SITE L RADIAL; METHB 1.6 % (0.0-1.5); O2(CT) 17.8 mL/dL (15.0-23.0); PCO2(98.6) 21 mmHg (35-45); PO2(98.6) 104 mmHg (60-100); SAMPLE BLOOD; SAO2 99.2 % (95.0-100.0); THB 13.1 g/dL (11.5-17.4); pH(98.6) 7.31 (7.35-7.45)
[2016-11-22 02:40] LABS: MODALITY ROOM AIR
[2016-11-22] MEDS ORDERED: HUMULIN R 100 UNIT in NS 100 ML IV SCH (03:00)
[2016-11-22 03:15] LABS: BASO% 0.2 % (0.0-0.8); EOS# 0.03 X1000 (0.0-0.7); EOS% 0.3 % (0.0-10.0); HEMATOCRIT 35.2 % (42.0-52.0); HEMOGLOBIN 12.3 g/dL (14.0-18.0); IMM GRAN# 0.12 X1000 (0.0-0.04); LYMPH# 0.82 X1000 (1.2-3.4); LYMPH% 6.9 % (20.5-51.1); MANUAL DIFF NEEDED? NO; MCH 33.8 PG (27-31); MCHC 34.9 g/dL (33-37); MCV 96.7 FL (81-99); MONO# 0.57 X1000 (0.11-0.59); MONO% 4.8 % (1.7-9.3); MPV 9.5 FL (7.4-10.4); NEUT% 86.8 % (42.2-75.2); PLT 263 X1000 (130-400); RBC 3.64 XMIL (4.7-6.1)
[2016-11-22 03:40] LABS: AGAP 33; ALBUMIN 3.7 g/dL (3.5-5.0); ALKALINE PHOSPHATASE 97 U/L (32-122); BUN 10 mg/dL (8-22); CALCIUM 8.4 mg/dL (8.8-10.2); CHLORIDE 90 mmol/L (98-107); COSMO 279; GOT 12 U/L (10-34); GPT 10 U/L (10-44); POTASSIUM 4.3 mmol/L (3.5-5.1); SODIUM 132 mmol/L (136-145); TCO2 9 mmol/L (25-35); TOTAL BILIRUBIN 0.48 mg/dL (0.20-1.00); TOTAL PROTEIN 6.6 g/dL (6.3-8.3)
--- NOTE | 2016-11-22 03:50 | PROVIDER DOCUMENTATION ---
This chart was entered by Viviane Araiza Scribe, acting as scribe for Brandon Castanon MD. HPI-Rash/Wound/ReCheck - General Chief Complaint: Nausea/Vomiting Stated Complaint: VOMITTING AND WEAKNESS Time Seen by Provider: 11/22/16 02:11 Source: patient Allergies/Adverse Reactions: Allergies Allergy/AdvReac Type Severity Reaction Status Date / Time carbetapentane AdvReac SHORTNESS Verified 11/17/16 02:39 [From Carbaphen 12] OF BREATH chlorpheniramine AdvReac SHORTNESS Verified 11/17/16 02:39 [From Carbaphen 12] OF BREATH phenylephrine AdvReac SHORTNESS Verified 11/17/16 02:39 [From Carbaphen 12] OF BREATH Home Medications: Home Medication List Medication Instructions Recorded Confirmed Last Taken Type Hydrocodone/Acetaminophen [[place] 1 each PO PRN PRN 11/17/16 11/17/16 11/15/16 History 5-325 Tablet] Levothyroxine [Synthroid] 50 microgm PO DAILY 11/17/16 11/17/16 11/15/16 History Pembrolizumab [Keytruda] 0 mg IV DIRECTED 11/17/16 11/17/16 Unknown History Amoxicillin/Pot Clavulanate 875 mg PO Q12HR #10 tablet 11/21/16 Unknown Rx [Augmentin] Insulin Glargine [Lantus] 10 unit SUBQ QHS #1 insuln.pen 11/21/16 Unknown Rx Metformin [Glucophage] 500 mg PO BID CC #60 tablet 11/21/16 Unknown Rx - History of Present Illness-Dermatology Nature of Presenting Problem: 56 Y/O M presents to ED with Return/Recheck. Pt was d/c from upstairs around 4pm yesterday evening and stated he has been constantly V since 5 that evening. Pt states he has esophageal cancer and has never had a glucose problem until then. Pt denies F,D,ABD pain. Pt was given metformin and hasn't been abto take them due to the episodes of V since D/c. Pt states that he isn't able to stand because he V when standing and has had chills, and hot flashes. Believes he has gone back into DKA. Location: reports: generalized Severity: reports: moderate, severe Onset/Duration: reports: other (12 hours ago.) Timing: reports: still present Context/Associated Symptoms: reports: other (Vomiting, weakness) Identifiable cause?: Yes - Recheck Treated days ago.: 5 Previous Treatment: other (DKA) Symptoms since procedure:: reports: weakness Review of Systems - Adult - REVIEW OF SYSTEMS - ADULT Constitutional: reports: chills. denies: fever Eyes: reports: no symptoms reported Ears, Nose, Mouth & Throat: reports: no symptoms reported Cardiovascular: reports: no symptoms reported Respiratory: reports: no symptoms reported Gastrointestinal: reports: nausea, vomiting. denies: abdominal pain, diarrhea Genitourinary: reports: no symptoms reported Musculoskeletal: reports: no symptoms reported Integumentary: reports: no symptoms reported Neurological: reports: no symptoms reported Psychiatric: reports: no symptoms reported Endocrine: reports: other (dka) Hematologic/Lymphatic: reports: no symptoms reported Allergic/Immunologic: reports: no symptoms reported All Other Systems: Reviewed and Negative Past History - Adult - PAST MEDICAL HISTORY-ADULT Review of Records: reports: Old Records Reviewed, Nursing Assessment Review, Medications Reviewed, Social history reviewed & non-contributory. Major Childhood Illnesses: reports: denies history Cardiovascular: reports: denies history Respiratory: reports: denies history Gastrointestinal: reports: other (esoph. cancer) Obstetrical/Gynecological: reports: denies history Genitourinary: reports: denies history Musculoskeletal: reports: denies history Neurological: reports: denies history Endocrine/Immune: reports: denies history Other Conditions: reports: denies history - PRIOR SURGERIES/PROCEDURES Surgical/Procedure History: reports: other (esoph ca surgery c j-tube placement) - FAMILY HISTORY Family History: reviewed, not pertinent Physical Exam-General - CONSTITUTIONAL General Appearance: alert, no apparent distress - EYES Eyes: PERRL/EOMI, pink conjunctivae - HEAD, EARS, NOSE, MOUTH & THROAT HENMT: normocephalic/atraumatic, moist mucous membranes, normal ENT inspection, TMs normal, pharynx normal - NECK Neck: non-tender, full range of motion, supple, normal inspection - RESPIRATORY Respiratory: chest non-tender, lungs clear, normal breath sounds - CARDIOVASCULAR Cardiovascular: normal peripheral pulses, regular rate, rhythm - GASTROINTESTINAL (ABDOMEN) Abdominal Exam: normal bowel sounds, soft - LYMPHATIC Lymphatic: no adenopathy - MUSCULOSKELETAL Back Exam: normal inspection, no CVA tenderness, no vertebral tenderness Extremity: normal range of motion - SKIN Integumentary: normal color, normal turgor, warm/dry - PSYCHIATRIC Psych/Mental Status: normal mood/affect, normal thought content, normal thought process, oriented x 3 Progress - PLAN OF CARE/RESULTS Progress/Plan/Lab Results: Vital Signs - 8 hr 11/22/16 01:54 Temperature 97.6 F Pulse Rate 112 H Respiratory Rate 22 Blood Pressure 123/72 O2 Sat by Pulse Oximetry 100 Laboratory Results - last 24 hr 11/22/16 11/22/16 11/22/16 02:12 02:25 02:25 WBC 11.97 H RBC 3.64 L Hgb 12.3 L Hct 35.2 L MCV 96.7 MCH 33.8 H MCHC 34.9 RDW Std Deviation 12.4 Plt Count 263 MPV 9.5 Immature Gran % (Auto) 1.0 H Neut % (Auto) 86.8 H Lymph % (Auto) 6.9 L [place] % (Auto) 4.8 Eos % (Auto) 0.3 Baso % (Auto) 0.2 Immature Gran # (Auto) 0.12 H Neut # (Auto) 10.41 H Lymph # (Auto) 0.82 L [place] # (Auto) 0.57 Eos # (Auto) 0.03 Baso # (Auto) 0.02 Specimen Type ARTERIAL Sample Site L RADIAL pH 7.31 L pCO2 21 L pO2 104 H HCO3 14.4 L Base Excess -13.5 L Oxyhemoglobin 96.1 ABG O2 Sat (Calculated) 17.8 ABG O2 Saturation 99.2 ABG Carboxyhemoglobin 1.50 ABG Methemoglobin 1.6 H Bruno Test YES A-a O2 Difference 19.0 Total Hemoglobin 13.1 Lactate 1.90 Blood Gas Modality ROOM AIR FiO2 % 21.0 Sodium Potassium Chloride Carbon Dioxide Anion Gap BUN Creatinine Estimated GFR/1.73 m2 BUN/Creatinine Ratio Glucose Calculated Osmolality Calcium Total Bilirubin AST ALT Alkaline Phosphatase Total Protein Albumin Globulin Albumin/Globulin Ratio Acetone Level SMALL A 11/22/16 02:25 WBC RBC Hgb Hct MCV MCH MCHC RDW Std Deviation Plt Count MPV Immature Gran % (Auto) Neut % (Auto) Lymph % (Auto) [place] % (Auto) Eos % (Auto) Baso % (Auto) Immature Gran # (Auto) Neut # (Auto) Lymph # (Auto) [place] # (Auto) Eos # (Auto) Baso # (Auto) Specimen Type Sample Site pH pCO2 pO2 HCO3 Base Excess Oxyhemoglobin ABG O2 Sat (Calculated) ABG O2 Saturation ABG Carboxyhemoglobin ABG Methemoglobin Bruno Test A-a O2 Difference Total Hemoglobin Lactate Blood Gas Modality FiO2 % Sodium 132 L Potassium 4.3 D Chloride 90 L Carbon Dioxide 9 L Anion Gap 33 BUN 10 D Creatinine 0.7 Estimated GFR/1.73 m2 > 60 BUN/Creatinine Ratio 14 Glucose 383 H D Calculated Osmolality 279 Calcium 8.4 L Total Bilirubin 0.48 AST 12 ALT 10 Alkaline Phosphatase 97 Total Protein 6.6 Albumin 3.7 Globulin 2.9 Albumin/Globulin Ratio 1.3 Acetone Level Orders Category Date Time Status Finger Stick Blood Sugar (ED) DIRECTED Care 11/22/16 02:12 Active ABG [RESP] Routine Lab 11/22/16 02:12 Completed ACETONE SERUM [CHEM] Stat Lab 11/22/16 02:25 Completed CBC WITH ELECTRONIC DIFF [HEME] Stat Lab 11/22/16 02:25 Completed CMP [COMPREHENSIVE METABOLIC PANEL] [CHEM] Stat Lab 11/22/16 02:25 Completed 0.9% Sodium Chloride Inj [Ns] 1,000 ml Med 11/22/16 02:13 Discontinued IV 999 mls/hr 0.9% Sodium Chloride Inj [Ns] 100 ml Med 11/22/16 03:00 Active Insulin Human Regular [Humulin R] 100 unit IV As Directed Insulin Human Regular [Humulin R] Med 11/22/16 02:20 Discontinued 5 unit IV NOW ONE Ondansetron [Zofran] Med 11/22/16 02:12 Discontinued 4 mg IV NOW ONE Ondansetron [Zofran] Med 11/22/16 03:11 Discontinued 4 mg IV NOW ONE Result Diagrams: 11/22/16 02:25 11/22/16 02:25 - REASSESSMENT Reassessment #1 Status: improving Departure - Departure Time of Disposition Decision: 03:49 DIAGNOSIS: Diabetic ketoacidosis Qualifiers: Diabetes mellitus type: drug or chemical induced Diabetes mellitus complication detail: without coma Qualified Code(s): E09.10 - 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 This chart was documented by the indicated scribe, (Viviane Araiza Scribe) and accurately reflects the services I performed and decisions made by me, Brandon Castanon MD, as attested by the provider's signature.
--- NOTE | 2016-11-22 04:06 | HISTORY AND PHYSICAL ---
PRIMARY CARE PHYSICIAN: Nelson Olivas MD CHIEF COMPLAINT: Nausea, vomiting. HISTORY OF PRESENTING ILLNESS: A 56-year-old male with a history of esophageal cancer who had just been recently discharged from hospital a day ago after treatment for diabetic ketoacidosis, had presented again with complaint of nausea and vomiting. The patient apparently went home and due to insurance problems, he was not able to get his insulin and he felt somewhat okay and went home. However, later in the day, he developed worsening nausea and vomiting, and subsequently had to return back to emergency department. In the ER, he was evaluated. Found to be in early DKA again and due to his presenting symptoms, it was thought that he would need hospitalization for further management. At the time of my examination, he had denied any headache, fevers, chills, chest pain, shortness of breath, hemoptysis or weight changes, but complained of having nausea, vomiting and not feeling well. PAST MEDICAL HISTORY: Includes esophageal cancer. PAST SURGICAL HISTORY: Tonsillectomy, appendectomy and esophageal surgery. ALLERGIES: Carboplatin, chlorpheniramine and phenylephrine. CURRENT MEDICATIONS: As listed in the MAR. SOCIAL HISTORY: Denies any history of smoking, alcohol or illicit drug use. FAMILY HISTORY: No history of coronary artery disease. REVIEW OF SYSTEMS: Twelve point review of systems is as in HPI. Other systems negative. PHYSICAL EXAMINATION: GENERAL: Cooperative, friendly male. He is resting more comfortably now. VITAL SIGNS: Temperature 97.6 degrees, pulse 112, respiration 22, blood pressure 123/72. He is saturating 100%. HEENT: Atraumatic, normocephalic. Extraocular movements intact. PERRLA. NECK: Supple. CHEST: Clear to auscultation. CARDIOVASCULAR: Regular rate and rhythm. ABDOMEN: Soft. Positive bowel sounds. EXTREMITIES: No edema. NEURO: He is awake, alert, oriented x3. : No bladder distention. SKIN: Warm. LABORATORIES AND STUDIES: WBC 11.97, hemoglobin 12.3, hematocrit 35.2, platelets 263,000. Sodium 132, potassium 4.3, chloride 90, CO2 is 9, BUN is 10, creatinine 0.7, glucose is 383. ASSESSMENT: This is a 56-year-old male with a history of esophageal cancer who had just been discharged after treatment for diabetic ketoacidosis. However, went home and was unable to get his insulin. Presented back again with elevated blood glucose, nausea, vomiting and symptoms consistent with early diabetic ketoacidosis. Subsequently, he will need hospitalization for further management assessment. 1. Early diabetic ketoacidosis. 2. Adverse effects to his medications Keytruda causing DKA. 3. History of esophageal cancer. PLAN: 1. We will admit patient to ICU. 2. We will continue patient on insulin drip. 3. Continue with IV fluids. 4. Put patient on DVT prophylaxis with SCDs. 5. We will continue to follow and reassess. cc: Delfino Cody MD MTDD
[2016-11-22] MEDS ORDERED: D5 NS 1,000 ML IV SCH (05:42)
[2016-11-22] MEDS ORDERED: SODIUM BICARBONATE 8.4% 50 MEQ in D5W 250 ML IV PRN (05:42)
[2016-11-22] MEDS ORDERED: TYLENOL PR PRN (05:42)
[2016-11-22] MEDS ORDERED: SODIUM PHOSPHATE 30 MMOL in D5W 250 ML IV PRN (05:42)
[2016-11-22] MEDS ORDERED: ZOFRAN IV PRN (05:42)
[2016-11-22] MEDS ORDERED: D50W SYRINGE IV PRN (05:42)
[2016-11-22] MEDS ORDERED: HUMULIN R 100 UNIT in NS 99 ML IV SCH (05:42)
[2016-11-22] MEDS: NS 1,000 ML IV SCH ×4 (05:56→23:16)
[2016-11-22 06:22] LABS: ALLEN TEST YES; BE -14.5 mmoll (-3.0-3.0); BLOOD TYPE ARTERIAL; DRAW SITE R RADIAL; METHB 1.1 % (0.0-1.5); MODALITY ROOM AIR; O2(CT) 16.9 mL/dL (15.0-23.0); PCO2(98.6) 22 mmHg (35-45); PO2(98.6) 107 mmHg (60-100); SAMPLE BLOOD; THB 12.3 g/dL (11.5-17.4); pH(98.6) 7.28 (7.35-7.45)
[2016-11-22] MEDS ORDERED: POTASSIUM CHLORIDE 40 MEQ in NS 250 ML IV PRN (06:39)
[2016-11-22 07:04] LABS: AGAP 25; BUN 9 mg/dL (8-22); CALCIUM 8.2 mg/dL (8.8-10.2); CHLORIDE 97 mmol/L (98-107); COSMO 273; MAGNESIUM 1.5 mg/dL (1.5-2.7); SODIUM 132 mmol/L (136-145); TCO2 10 mmol/L (25-35)
[2016-11-22] MEDS: MAGNESIUM SULFATE 2 GM/S.W.I. 2 GM/50 ML IVPB IV PRN (07:14)
[2016-11-22] MEDS ORDERED: NS 1,000 ML IV SCH (08:00)
[2016-11-22] MEDS: POTASSIUM CHLORIDE 20 MEQ in NS 100 ML IV PRN ×2 (09:33→15:48)
[2016-11-22 09:56] LABS: ALLEN TEST NO; BE -9.8 mmoll (-3.0-3.0); BLOOD TYPE ARTERIAL; DRAW SITE R BRACHIAL; METHB 0.8 % (0.0-1.5); O2(CT) 15.6 mL/dL (15.0-23.0); PCO2(98.6) 28 mmHg (35-45); PO2(98.6) 97 mmHg (60-100); SAMPLE BLOOD; SAO2 100.8 % (95.0-100.0); THB 11.3 g/dL (11.5-17.4); pH(98.6) 7.33 (7.35-7.45)
[2016-11-22 09:57] LABS: MODALITY ROOM AIR
[2016-11-22] MEDS: ZOFRAN IV PRN ×2 (10:00→13:47)
[2016-11-22] MEDS ORDERED: MIRALAX PO ONE (11:19)
--- NOTE | 2016-11-22 12:29 | PROGRESS NOTE ---
DATE: 11/22/2016 SUBJECTIVE: Today, Mr. Hinton refers to be doing fine. According to him, he feels slightly constipated and he will need something to help him move his bowels. Mr. Hinton was just discharged from the hospital yesterday and had to turn back right away because he was having some nausea and vomiting. He came in, and he was in nikita DKA. According to him, he did not take any more Keytruda, but he only got his metformin, did not get any insulin, and then came back in nikita DKA. OBJECTIVE: Vital signs: Blood pressure is 114/58, pulse of 102, respirations 24, temperature is 98.7. General exam: Mr. Hinton is a 56-year-old male. He is in bed in no distress. HEENT: Mucosa is pink and slightly dry. Anicteric and acyanotic. Neck: Supple. Chest: Good air entry bilaterally, no crepitations and no rhonchi. Cardiovascular: Regular rate and rhythm. Abdomen: Soft, nontender, bowel sounds are present. Extremities: No pedal edema. FOOD SAMPLER: The patient is alert and oriented x4. LABORATORY DATA: WBC is 11.97, hemoglobin is 12.3, platelet count of 263. Chemistries reviewed. Sodium is 132, potassium is 4.0, chloride 97, bicarbonate is 10, anion gap is 25. ASSESSMENT: 1. Diabetic ketoacidosis, so high anion gap metabolic acidosis likely secondary to DKA. 2. Keytruda-induced diabetic ketoacidosis. 3. History of esophageal cancer. 4. Constipation, will address this more symptomatically. So in general, I think patient is doing fine. He is still in high gap acidosis. Will continue with the protocol until the DKA has resolved, and then will transfer him to the floor. I will put the patient on MiraLAX to help with the bowel movement. cc: Armando Archuleta MD
[2016-11-22 13:01] LABS: AGAP 15; BUN 7 mg/dL (8-22); CALCIUM 7.9 mg/dL (8.8-10.2); CHLORIDE 102 mmol/L (98-107); COSMO 267; POTASSIUM 4.3 mmol/L (3.5-5.1); SODIUM 134 mmol/L (136-145); TCO2 17 mmol/L (25-35)
[2016-11-22 14:20] LABS: ALLEN TEST YES; BE -11.1 mmoll (-3.0-3.0); BLOOD TYPE ARTERIAL; DRAW SITE R RADIAL; PCO2(98.6) 25 mmHg (35-45); SAMPLE BLOOD; SAO2 98.8 % (95.0-100.0); pH(98.6) 7.33 (7.35-7.45)
[2016-11-22 14:23] LABS: METHB 1.6 % (0.0-1.5); O2(CT) 16.5 mL/dL (15.0-23.0); PO2(98.6) 110 mmHg (60-100); THB 12.1 g/dL (11.5-17.4)
--- NOTE | 2016-11-22 15:46 | Diag Imaging Result Doc PS360 ---
KUB ABDOMEN - 11/22/2016 INDICATION: nausea TECHNIQUE: COMPARISON: 11/17/2016 FINDINGS: There are some stable small calcified gallstones in the gallbladder. No bowel obstruction or free air. IMPRESSION: No acute disease or change from prior. Electronically signed by Rod Cage 11/22/2016 3:43 PM
[2016-11-22] MEDS ORDERED: PHENERGAN IV PRN (17:24)
[2016-11-22] MEDS ORDERED: SODIUM CHLORIDE 0.9% INJ PRN (17:24)
[2016-11-22] MEDS ORDERED: DULCOLAX PR PRN (17:25)
[2016-11-22] MEDS: D5 NS 1,000 ML IV SCH (17:53)
[2016-11-22 18:50] LABS: AGAP 25; BUN 8 mg/dL (8-22); CHLORIDE 97 mmol/L (98-107); COSMO 274; MAGNESIUM 1.7 mg/dL (1.5-2.7); POTASSIUM 5.7 mmol/L (3.5-5.1); SODIUM 131 mmol/L (136-145); TCO2 9 mmol/L (25-35)
[2016-11-22] MEDS ORDERED: NS 2,000 ML ONE (19:49)
[2016-11-22] MEDS: MILK OF MAGNESIA PO ONE (20:48)
[2016-11-22 22:31] LABS: AGAP 19; BUN 7 mg/dL (8-22); CALCIUM 7.8 mg/dL (8.8-10.2); CHLORIDE 101 mmol/L (98-107); COSMO 270; MAGNESIUM 1.6 mg/dL (1.5-2.7); POTASSIUM 4.2 mmol/L (3.5-5.1); SODIUM 132 mmol/L (136-145); TCO2 12 mmol/L (25-35)
[2016-11-23] MEDS: D5 NS 1,000 ML IV SCH ×4 (00:15→10:07)
[2016-11-23] MEDS: MILK OF MAGNESIA PO ONE (00:52)
[2016-11-23 01:22] LABS: AGAP 15; BUN 7 mg/dL (8-22); CALCIUM 8.1 mg/dL (8.8-10.2); CHLORIDE 104 mmol/L (98-107); COSMO 269; MAGNESIUM 1.6 mg/dL (1.5-2.7); POTASSIUM 3.7 mmol/L (3.5-5.1); SODIUM 135 mmol/L (136-145); TCO2 16 mmol/L (25-35)
[2016-11-23] MEDS: POTASSIUM CHLORIDE 20 MEQ in NS 100 ML IV PRN (02:03)
[2016-11-23] MEDS: MAGNESIUM SULFATE 2 GM/S.W.I. 2 GM/50 ML IVPB IV PRN (02:03)
[2016-11-23] MEDS: NS 1,000 ML IV SCH ×3 (04:29→16:17)
[2016-11-23 05:15] LABS: MANUAL DIFF NEEDED? NO
[2016-11-23 05:20] LABS: BASO% 0.1 % (0.0-0.8); EOS# 0.06 X1000 (0.0-0.7); EOS% 0.6 % (0.0-10.0); HEMATOCRIT 36.1 % (42.0-52.0); HEMOGLOBIN 12.7 g/dL (14.0-18.0); IMM GRAN# 0.07 X1000 (0.0-0.04); IMM GRAN% 0.7 % (0.0-0.5); LYMPH# 1.45 X1000 (1.2-3.4); LYMPH% 14.9 % (20.5-51.1); MCH 33.7 PG (27-31); MCHC 35.2 g/dL (33-37); MCV 95.8 FL (81-99); MONO# 0.75 X1000 (0.11-0.59); MONO% 7.7 % (1.7-9.3); MPV 8.7 FL (7.4-10.4); PLT 314 X1000 (130-400); RBC 3.77 XMIL (4.7-6.1)
[2016-11-23 05:52] LABS: AGAP 13; BUN 5 mg/dL (8-22); CALCIUM 8.1 mg/dL (8.8-10.2); CHLORIDE 105 mmol/L (98-107); COSMO 268; MAGNESIUM 2.1 mg/dL (1.5-2.7); POTASSIUM 4.2 mmol/L (3.5-5.1); SODIUM 135 mmol/L (136-145); TCO2 17 mmol/L (25-35)
[2016-11-23 09:31] LABS: AGAP 12; BUN 4 mg/dL (8-22); CALCIUM 7.7 mg/dL (8.8-10.2); CHLORIDE 104 mmol/L (98-107); COSMO 270; MAGNESIUM 1.7 mg/dL (1.5-2.7); POTASSIUM 3.7 mmol/L (3.5-5.1); SODIUM 135 mmol/L (136-145); TCO2 19 mmol/L (25-35)
--- NOTE | 2016-11-23 10:23 | PROGRESS NOTE ---
DATE: 11/23/2016 SUBJECTIVE: Today Mr. Hinton referred to be doing a whole lot better. Nausea, and vomiting has also subsided. OBJECTIVE: Vital signs: Blood pressure is 152/89, pulse of 83, respirations 19, and temperature is 98.6 degrees. General: Mr. Hinton is a 56-year-old male. He was in bed, not in any distress. HEENT: Mucosa is pink and moist. Anicteric. Acyanotic. Neck: Supple. Chest: Clear. Cardiovascular: Regular rate and rhythm. Abdomen: Soft, nontender. Extremities: No pedal edema. GREASER AND OILER: Patient is alert and oriented x4. There is no focal neurological deficit. LABORATORY DATA: WBC is 9.76, hemoglobin is 12.7, platelet count of 314. Chemistry: Sodium 135, potassium 3.7, chloride 104, bicarbonate is 19, gap is 12. ASSESSMENT: 1. High anion gap metabolic acidosis on presentation, improved. 2. Diabetic ketoacidosis, resolved. 3. Keytruda-induced diabetic ketoacidosis. 4. History of esophageal cancer. 5. Constipation, improved. 6. Hypophosphatemia with hypocalcemia due to vitamin D deficiency. We will replace this. PLAN: In general, I think Mr. Hinton is doing a whole lot better. The DKA is resolved. We are waiting to start the patient on 70/30 long-acting insulin since he was not able to purchase the glargine the last time he was discharged. He will get 15 units now overlapping the drip for 2 hours. He is going to be fed also now. At the end of the 2 hours, the drip will be turned off, and we will cover his needs with other sliding scale. The patient will be transferred to the regular floor and continue with hydration. He has been encouraged to move around to help mobilize his bowel. cc: Armando Archuleta MD
[2016-11-23] MEDS: HUMULIN 70/30 SUBQ SCH (10:30)
[2016-11-23] MEDS: HUMULIN R SUBQ SCH ×2 (16:19→20:39)
[2016-11-23] MEDS: TYLENOL PO PRN (20:37)
[2016-11-23] MEDS ORDERED: MILK OF MAGNESIA PO PRN (21:00)
[2016-11-24] MEDS: HUMULIN R SUBQ SCH ×4 (06:28→22:04)
[2016-11-24] MEDS: HUMULIN 70/30 SUBQ SCH (06:29)
[2016-11-24 06:34] LABS: AGAP 12; BUN 3 mg/dL (8-22); CALCIUM 7.8 mg/dL (8.8-10.2); CHLORIDE 101 mmol/L (98-107); COSMO 273; POTASSIUM 3.9 mmol/L (3.5-5.1); SODIUM 136 mmol/L (136-145); TCO2 23 mmol/L (25-35)
[2016-11-24] MEDS: TYLENOL PO PRN ×2 (07:06→15:16)
--- NOTE | 2016-11-24 14:56 | PROGRESS NOTE ---
DATE: 11/24/2016 SUBJECTIVE: Today Mr. Hinton refers to be doing a whole lot better. He was actually sitting up in the chair without any symptoms. The nausea and vomiting has completely resolved. OBJECTIVE: General: Mr. Hinton is a 56-year-old male. He was sitting up in the chair and was not in any distress. HEENT: Mucosa is pink and moist. Anicteric. Acyanotic. Neck: Supple. Chest: Clear. Cardiovascular: Regular rate and rhythm. Abdomen: Soft and nontender. Extremities: No pedal edema. ENROLLMENT SPECIALIST: The patient was alert and oriented times 4. No focal neurological deficit. LABORATORY DATA: Chemistry: Sodium is 136, potassium 3.9, chloride 101, bicarb 23, creatinine 0.5, and glucose 180. ASSESSMENT: 1. Diabetic ketoacidosis, resolved. 2. Keytruda-induced hyperglycemia. 3. History of esophageal cancer. 4. Constipation, improved. 5. Vitamin D deficiency. We will continue to replace. So, in general I think Mr. Hinton is doing a lot better. He still has a mildly elevated glucose. We are going to continue with the 70/30 at 15 units in the morning. I am going to add 7 units in the evening. We will continue with a sliding scale and make changes to the insulin needs accordingly. I anticipate that we might be able to discharge Mr. Hinton tomorrow if his glucose is fairly controlled. cc: Armando Archuleta MD
[2016-11-24] MEDS: NS 1,000 ML IV SCH ×3 (15:29→16:15)
[2016-11-24] MEDS ORDERED: HUMULIN 70/30 SUBQ SCH (17:00)
[2016-11-25] MEDS: TYLENOL PO PRN ×2 (01:10→10:13)
[2016-11-25] MEDS: HUMULIN R SUBQ SCH ×2 (06:28→10:44)
[2016-11-25] MEDS: HUMULIN 70/30 SUBQ SCH (06:30)
[2016-11-25 07:10] LABS: AGAP 13; BUN 4 mg/dL (8-22); CALCIUM 8.1 mg/dL (8.8-10.2); CHLORIDE 99 mmol/L (98-107); COSMO 277; POTASSIUM 4.1 mmol/L (3.5-5.1); SODIUM 137 mmol/L (136-145); TCO2 25 mmol/L (25-35)
[2016-11-25] MEDS ORDERED: VITAMIN D PO SCH (09:00)
[2016-11-25 12:06] VITALS: BP 128/82
--- NOTE | 2016-11-25 14:36 | DISCHARGE SUMMARY ---
ADMISSION DATE: 11/22/2016 DISCHARGE DATE: 11/25/2016 HOSPITAL COURSE: He is 56-year-old with history of esophageal cancer, had just been recently discharged from the hospital a day or so after treatment for diabetic ketoacidosis. Presented again with complaints of nausea and vomiting. Apparently went home and due to insurance problems he was not able to get his insulin and felt somewhat okay went home. However later he developed worsening nausea, vomiting, subsequently had to return back to emergency room. In the ER was evaluated, found to have early DKA, again due to his presenting symptoms thought that he would need hospitalization for further management. Patient admitted, given fluids and insulin, seemed to improve fairly quickly. Abdominal x-ray on 11/22 there is no acute disease or change. He was eating again and requested go home on 11/25/2016. He did have a high anion gap acidosis which improved. He had taken Keytruda and suspect this is Keytruda-induced diabetic ketoacidosis. History esophageal cancer status post I think esophageal resection. So I am going to let him go home on 11/25/2016, discharge home on the following medications. DISCHARGE MEDICATIONS: He can take a Dulcolax as needed, vitamin D, cholecalciferol 2000 units p.o. daily, Humulin 70/30 15 units in the morning and 7 units at 5 o'clock, milk of magnesia 30 mL p.o. daily p.r.n. HOME MEDICATIONS: He was taking Augmentin and he finished that up, he has hydrocodone at home for pain, he is taking Lantus glargine 10 units subcu at bedtime, Prevacid 30 mg p.o. daily, Synthroid 50 mcg daily, Glucophage 500 mg b.i.d. and the Keytruda as directed. I think it is given IV periodically. cc: Bruno May MD
[2016-11-25] MEDS ORDERED: INSULIN PEN NEEDLES ONE (14:45)
[2016-11-25] MEDS ORDERED: HEPARIN INJ ONE (14:49)
== END 2016-11-25 16:04 | disposition home or self-care (01) ==
LOC: ED 01:50 → SUATTDRO 04:59 → ICU 04:59 → 3N 11-24 11:38
PROVIDERS: ATTEND Emergency Medicine